=== PATIENT | male | born 1970 | race Caucasian/White ===

== ENCOUNTER 2017-06-28 11:35 | Observation (INO) | payer BC ==
[~2017-06-28] VITALS: Ht 167.6 cm; Wt 78.0 kg
[2017-06-28] VITALS (12 sets, daily range): BP systolic 133–198; BP diastolic 73–102; PULSE 54–101; RESP 18–31; TEMP 97.7–98.1; O2SAT 95–100
[~2017-06-28 11:35] MED LIST: APIDRA SQ; ASPI325T PO; ISOS30 PO; LISI-360 PO; NITR0.4S SL; PROT40TA PO; ROSU5 PO
[2017-06-28] MEDS ORDERED: PROPARACAINE HCL 0.5% OPHT SOLN 15 ML BTL RIGHT EYE ONE (11:45)
[2017-06-28] MEDS ORDERED: MORPHINE SULFATE 4 MG/ML INJ IV PUSH ONE (11:45)
[2017-06-28] MEDS ORDERED: SODIUM CHLORIDE 0.9% FLUSH 5 ML FLUSH IV FLUSH PRN (11:45)
[2017-06-28] MEDS ORDERED: SODIUM CHLORIDE 0.9% FLUSH 10 ML FLUSH IVF PRN (11:45)
[2017-06-28] MEDS: NITROGLYCERIN 0.4 MG SL 25 TABS/BTL SL SCH ×3 (11:50→12:17)
--- NOTE | 2017-06-28 11:53 | RADRPT ---
EXAM DATE/TIME: 06/28/2017 11:42 [facility] COMPARISON: No previous studies available for comparison. INDICATIONS : Syncope, had an injection in his eye and became short of breath. MEDICAL HISTORY : None. SURGICAL HISTORY : None. ENCOUNTER: Initial ACUITY: 1 day PAIN SCORE: 0/10 LOCATION: Bilateral chest FINDINGS: A single view of the chest demonstrates the lungs to be symmetrically aerated without evidence of mas s, infiltrate or effusion. The cardiomediastinal contours are unremarkable. Osseous structures are intact. CONCLUSION: Normal examination for a patient of this age. Noel Vaca MD on June 28, 2017 at 11:51 Board Certified Radiologist. This report was verified electronically.
[2017-06-28] MEDS ORDERED: ONDANSETRON HCL 4 MG/2 ML VIAL ONE (11:59)
[2017-06-28 12:12] LABS: AUTOMATED NEUTROPHIL # 7.6 TH/MM3 (1.8-7.7); BASOPHIL # 0.1 TH/MM3 (0-0.2); BASOPHIL % 0.8 % (0.0-2.0); EOSINOPHIL # 0.1 TH/MM3 (0-0.4); EOSINOPHIL % 0.9 % (0.0-4.0); HEMATOCRIT 44.3 % (39.0-51.0); HEMO FLAGS DIFF FINAL; LYMPHOCYTE # 2.5 TH/MM3 (1.0-4.8); MEAN CELL VOLUME 94.5 FL (80.0-100.0); MEAN CORPUSCULAR HEMOGLOBIN 32.6 PG (27.0-34.0); MEAN CORPUSCULAR HGB CONC 34.6 % (32.0-36.0); MONO % 8.7 % (0.0-8.0); NEUT % 67.6 % (16.0-70.0); PLATELET COUNT 283 TH/MM3 (150-450); RED BLOOD COUNT 4.69 MIL/MM3 (4.50-5.90); RED CELL DISTRIBUTION WIDTH 13.4 % (11.6-17.2); WHITE BLOOD COUNT 11.2 TH/MM3 (4.0-11.0)
[2017-06-28 12:21] LABS: APTT (PATIENT) 22.3 SEC (24.3-30.1); PROTHROMBIN TIME - PATIENT 11.1 SEC (9.8-11.6)
--- NOTE | 2017-06-28 12:25 | RADRPT ---
EXAM DATE/TIME: 06/28/2017 12:05 [facility] COMPARISON: No previous studies available for comparison. INDICATIONS : Altered mental status, loss of consciousness. RADIATION DOSE: 56.35 CTDIvol (mGy) MEDICAL HISTORY : Cardiovascular disease. Hypertension. Diabetes mellitus type 2. SURGICAL HISTORY : Coronary artery stent. ENCOUNTER: Initial ACUITY: 1 day PAIN SCALE: 0/10 LOCATION: cranial TECHNIQUE: Multiple contiguous axial images were obtained of the head. Using automated exposure control and adj ustment of the mA and/or kV according to patient size, radiation dose was kept as low as reasonably a chievable to obtain optimal diagnostic quality images. DICOM format image data is available electro nically for review and comparison. FINDINGS: CEREBRUM: The ventricles are normal for age. No evidence of midline shift, mass lesion, hemorrhage or acute in farction. No extra-axial fluid collections are seen. POSTERIOR FOSSA: The cerebellum and brainstem are intact. The 4th ventricle is midline. The cerebellopontine angle i s unremarkable. EXTRACRANIAL: The visualized portion of the orbits is intact. SKULL: The calvaria is intact. No evidence of skull fracture. CONCLUSION: Normal examination. Paramjit Mata MD on June 28, 2017 at 12:23 Board Certified Radiologist. This report was verified electronically.
[2017-06-28 12:28] LABS: ANION GAP 8 MEQ/L (5-15); BICARBONATE 24.2 MEQ/L (21.0-32.0); CHLORIDE 104 MEQ/L (98-107); GLOMERULAR FILTRATION RATE 90 ML/MIN (>89); POTASSIUM 4.8 MEQ/L (3.5-5.1); SODIUM (NA) 136 MEQ/L (136-145)
[2017-06-28 12:30] LABS: BLOOD UREA NITROGEN 23 MG/DL (7-18)
[2017-06-28 12:34] LABS: ALCOHOL LESS THAN 3 MG/DL (0-5)
--- NOTE | 2017-06-28 12:55 | PD ---
HPI Chief Complaint: Altered Mental Status Time Seen by Provider: 11:40 Travel History International Travel<30 days: No Contact w/Intl Traveler<30days: No Traveled to known affect area: No History of Present Illness HPI Patient's 46 years old. 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 At the time of injection he became very nervous and reported eye pain. Intraocular pressure was found to be 35 and a paracentesis was performed of the anterior chamber reducing the intraocular pressure to 13. Due to persistent pain and diaphoresis and distress exhibited by the patient the mold making plastics sheets supervisor called EMS and brought the patient here. The patient has a history of poorly controlled diabetes and 7 coronary stents. EMS reports blood pressure 200/100 and heart rate of 73 en route to ER. In the ER the patient complains of right eye pain. In summary the mold making plastics sheets supervisor noticed that patient's response to the injections to have been extraordinarily rare and the nature of the procedure and concern for an acute coronary process justified EMS activation. PFSH Past Medical History Blood Disorders: No Heart Rhythm Problems: No Cancer: No Cardiac Catheterization: Yes Cardiovascular Problems: Yes (STENTS X7 PER PT) High Cholesterol: Yes Chest Pain: Yes Congestive Heart Failure: No Diabetes: Yes (INSULIN DEPENDENT) Patient Takes Glucophage: No Diminished Hearing: No Endocrine: No Gastrointestinal Disorders: Yes GERD: Yes Genitourinary: No Hypertension: Yes Immune Disorder: No Musculoskeletal: No Neurologic: No Psychiatric: No Reproductive: No Respiratory: No Past Surgical History Coronary Stent: Yes Other Surgery: Yes (catheterization, rotator cuff left shoulder, trigger finger , left thumbs,) Social History Alcohol Use: Yes (COUPLE TIMES PER WEEK PER TP) Tobacco Use: Yes (1/2 PPD) Substance Use: No Allergies-Medications (Allergen,Severity, Reaction): Coded Allergies: Penicillin (Verified Allergy, Severe, hives, 06/28/17) Reported Meds & Prescriptions Reported Meds & Active Scripts Active Active Prescriptions or Reported Medications Unobtainable Review of Systems Except as stated in HPI: all other systems reviewed are Neg General / Constitutional: No: Fever Physical Exam Narrative GENERAL: 46-year-old male well-nourished well-developed mild to moderate distress SKIN: Minimal diaphoresis noted. HEAD: Atraumatic. Normocephalic. EYES: Pupils equal and round. No scleral icterus. No injection or drainage. Right eye is closed with minimal subconjunctival erythema. ENT: No nasal bleeding or discharge. Mucous membranes pink and moist. NECK: Trachea midline. No JVD. CARDIOVASCULAR: Regular rate and rhythm. RESPIRATORY: No accessory muscle use. Clear to auscultation. Breath sounds equal bilaterally. GASTROINTESTINAL: Abdomen soft, non-tender, nondistended. Hepatic and splenic margins not palpable. MUSCULOSKELETAL: Extremities without clubbing, cyanosis, or edema. No obvious deformities. NEUROLOGICAL: Awake and alert. No obvious cranial nerve deficits. Motor grossly within normal limits. Five out of 5 muscle strength in the arms and legs. Normal speech. PSYCHIATRIC: Appropriate mood and affect; insight and judgment normal. Data Data Last Documented VS Vital Signs Date Time Temp Pulse Resp B/P Pulse Ox O2 Delivery O2 Flow Rate FiO2 06/28/17 12:51 193/102 06/28/17 12:24 58 20 96 Room Air 06/28/17 11:47 97.7 Orders Electrocardiogram (06/28/17 11:40) Basic Metabolic Panel (Bmp) (06/28/17 11:40) Complete Blood Count With Diff (06/28/17 11:40) Prothrombin Time / Inr (Pt) (06/28/17 11:40) Act Partial Throm Time (Ptt) (06/28/17 11:40) Troponin I (06/28/17 11:40) Chest, Single Ap (06/28/17 11:40) Ct Brain W/O Iv Contrast(Rout) (06/28/17 11:40) Blood Glucose (06/28/17 11:40) Ecg Monitoring (06/28/17 11:40) Iv Access Insert/Monitor (06/28/17 11:40) Oximetry (06/28/17 11:40) Sodium Chloride 0.9% Flush (Ns Flush) (06/28/17 11:45) Drug Screen, Random Urine (06/28/17 11:40) Alcohol (Ethanol) (06/28/17 11:40) Ckmb (Isoenzyme) Profile (06/28/17 11:45) Prothrombin Time / Inr (Pt) (06/28/17 11:45) Act Partial Throm Time (Ptt) (06/28/17 11:45) Troponin I (06/28/17 11:45) Morphine Inj (Morphine Inj) (06/28/17 11:45) Sodium Chloride 0.9% Flush (Ns Flush) (06/28/17 11:45) Proparacaine 0.5% Opth Soln (Alcaine 0.5 (06/28/17 11:45) Nitroglycerin Sl (Nitrostat Sl) (06/28/17 11:45) Ondansetron Inj (Zofran Inj) (06/28/17 11:59) Ondansetron Inj (Zofran Inj) (06/28/17 13:00) Insulin Human Regular Inj (Novolin R Inj (06/28/17 13:00) Hydromorphone Pf Inj (Dilaudid Pf Inj) (06/28/17 13:30) Lorazepam Inj (Ativan Inj) (06/28/17 13:30) Enalaprilat Inj (Vasotec Inj) (06/28/17 14:15) Admit Order (Ed Use Only) (06/28/17 14:38) Labs Laboratory Tests Test 06/28/17 11:54 White Blood Count 11.2 TH/MM3 Red Blood Count 4.69 MIL/MM3 Hemoglobin 15.3 GM/DL Hematocrit 44.3 % Mean Corpuscular Volume 94.5 FL Mean Corpuscular Hemoglobin 32.6 PG Mean Corpuscular Hemoglobin 34.6 % Concent Red Cell Distribution Width 13.4 % Platelet Count 283 TH/MM3 Mean Platelet Volume 9.2 FL Neutrophils (%) (Auto) 67.6 % Lymphocytes (%) (Auto) 22.0 % Monocytes (%) (Auto) 8.7 % Eosinophils (%) (Auto) 0.9 % Basophils (%) (Auto) 0.8 % Neutrophils # (Auto) 7.6 TH/MM3 Lymphocytes # (Auto) 2.5 TH/MM3 Monocytes # (Auto) 1.0 TH/MM3 Eosinophils # (Auto) 0.1 TH/MM3 Basophils # (Auto) 0.1 TH/MM3 CBC Comment DIFF FINAL Differential Comment Prothrombin Time 11.1 SEC Prothromb Time International 1.0 RATIO Ratio Activated Partial 22.3 SEC Thromboplast Time Sodium Level 136 MEQ/L Potassium Level 4.8 MEQ/L Chloride Level 104 MEQ/L Carbon Dioxide Level 24.2 MEQ/L Anion Gap 8 MEQ/L Blood Urea Nitrogen 23 MG/DL Creatinine 0.90 MG/DL Estimat Glomerular Filtration 90 ML/MIN Rate Random Glucose 325 MG/DL Calcium Level 8.2 MG/DL Troponin I LESS THAN 0.02 NG/ML Ethyl Alcohol Level LESS THAN 3 MG/DL MDM Medical Decision Making Medical Screen Exam Complete: Yes Emergency Medical Condition: Yes Medical Record Reviewed: Yes Differential Diagnosis Acute coronary syndrome, panic attack, glaucoma, vitreous hemorrhage, complication related to intraocular injections, diabetic retinopathy, increased intraocular pressure Narrative Course EKG reveals a sinus rhythm with a rate of 62 normal axis and intervals no ischemic injury pattern Last [address] 06/28/17 1140 Signed Impressions: Service Date/Time: June 12:05 - CONCLUSION: Normal examination. Paramjit Mata MD Chest X-Ray 06/28/17 1140 Signed Impressions: Service Date/Time: June 11:42 - CONCLUSION: Normal examination for a patient of this age. Noel Vaca MD CBC & BMP Diagram 06/28/17 11:54 Troponin less than 0.02 Alcohol less than 3 Last [address] 06/28/17 1140 Signed Impressions: Service Date/Time: June 12:05 - CONCLUSION: Normal examination. Paramjit Mata MD Chest X-Ray 06/28/17 1140 Signed Impressions: Service Date/Time: June 11:42 - CONCLUSION: Normal examination for a patient of this age. Noel Vaca MD EKG sinus rate 62 normal axis intervals no ischemic injury pattern Patient's blood pressure remained somewhat elevated initially with the BP is about 195/100. Patient had right eye pain for some time. 5 mg morphine was marginally beneficial temporarily. The complaints of persistent pain resulted in an additional 0.5 mg hydromorphone dose. 1.25 mg Vasotec ordered at 2:15. The case was discussed again with Dr. Isael crandall the patient had begun to complain of lack of vision in the right eye. The right eye pupil was fixed at about 4 mm. The left eye appeared normal. Intraocular pressure on the right side (OD) 29 27 24 24 and the left side (OS) [address] of the brain is normal. Nonspecific changes about the right orbit are noted. Case was discussed with Dr. Burnham for [facility]. Critical Care Narrative Aggregate critical care time was 35 minutes. Time to perform other separately billable procedures was not included in the critical care time. My time did not include minutes spent treating any other patients simultaneously or on activities that did not directly contribute to the patient's treatment. The services I provided to this patient were to treat and/or prevent clinically significant deterioration that could result in: Vision loss, intractable pain I provided critical care services requiring my management, as noted below: Chart data review, documentation time, medication orders and management, vital sign assessments/reviewing monitor data, ordering and reviewing lab tests, ordering and interpreting/reviewing x-rays and diagnostic studies, care of the patient and discussion of the patient with the admitting physicians. Diagnosis Primary Impression: Visual loss, right eye Additional Impression: Pain, eye, right Admitting Information Admitting Physician Requests: Admit Scripts Unable to Obtain Active Prescriptions or Reported Meds Mazin Nielsen MD Jun 28, 2017 12:55
[2017-06-28] MEDS ORDERED: INSULIN HUMAN REGULAR 1,000 UNITS/10 ML VIAL IV PUSH ONE (13:00)
[2017-06-28] MEDS ORDERED: ONDANSETRON HCL 4 MG/2 ML VIAL IV PUSH ONE (13:00)
[2017-06-28] MEDS ORDERED: LORazepam 2 MG/ML VIAL IV PUSH ONE (13:30)
[2017-06-28] MEDS ORDERED: HYDROmorphone HCL PF 1 MG/ML VIAL IV PUSH ONE (13:30)
[2017-06-28] MEDS ORDERED: ENALAPRILAT 1.25 MG/ML VIAL IV PUSH ONE (14:15)
[2017-06-28] MEDS ORDERED: ENALAPRILAT 1.25 MG/ML VIAL IV PRN (14:45)
[2017-06-28] MEDS ORDERED: ONDANSETRON HCL 4 MG/2 ML VIAL IVP PRN (14:45)
[2017-06-28] MEDS ORDERED: SODIUM CHLORIDE 0.9% FLUSH 10 ML FLUSH IV FLUSH PRN (14:45)
[2017-06-28] MEDS ORDERED: cloNIDine HCL 0.1 MG TAB PO PRN (14:45)
[2017-06-28] MEDS ORDERED: SENNOSIDES 8.6 MG TAB PO PRN (14:45)
[2017-06-28] MEDS ORDERED: hydrALAZINE HCL 20 MG/ML VIAL IV PRN (14:45)
[2017-06-28] MEDS ORDERED: LORazepam 2 MG/ML VIAL IV PUSH PRN (14:45)
[2017-06-28] MEDS ORDERED: DEXTROSE 50% IN WATER 50 ML VIAL(D50) IV PRN (14:45)
[2017-06-28] MEDS ORDERED: LACTULOSE SYRUP 20 GM/30 ML CUP PO PRN (14:45)
[2017-06-28] MEDS ORDERED: HYDROmorphone HCL PF 1 MG/ML VIAL IV PRN (14:45)
[2017-06-28] MEDS ORDERED: ACETAMINOPHEN 325 MG TAB PO PRN ×2 (14:45)
[2017-06-28] MEDS ORDERED: NALOXONE HCL 0.4 MG/ML AMP IV PRN (14:45)
[2017-06-28] MEDS ORDERED: GLUCAGON 1 MG/ML VIAL OTHER PRN (14:45)
[2017-06-28] MEDS ORDERED: ACETAMINOPHEN/HYDROcodone 325 MG/5 MG TAB PO PRN (14:45)
[2017-06-28] MEDS ORDERED: MAGNESIUM HYDROXIDE SUSP 30 ML CUP PO PRN (14:45)
[2017-06-28] MEDS ORDERED: 1/2 NS + KCL 20 MEQ INJ 1,000 ML IV PRN (15:30)
[2017-06-28] MEDS ORDERED: OMEP20TA PO (15:35)
[2017-06-28] MEDS ORDERED: INSU1INJ5 SQ (15:35)
[2017-06-28] MEDS ORDERED: NOVOLOGP2 IV (15:35)
[2017-06-28] MEDS ORDERED: LISI-515 PO (15:35)
--- NOTE | 2017-06-28 15:58 | HHI.HP ---
HPI Service [facility] Primary Care Physician Unknown Admission Diagnosis R Eye Pain/R Eye Visual Change, HTN, Anxiety, Hyperglycemia Diagnoses: Chief Complaint: Right eye pain, unable to see Travel History International Travel<30 Days: No Contact w/Intl Traveler <30 Da: No Traveled to Known Affected Are: No History of Present Illness Written by Jose Freitas, acting as scribe for Dr. Burnham on 06/28/17 at 15: 26. Patient is a 46-year-old male with primary medical history of HTN, IDDM, HLD, CAD, GERD who came into the hospital for evaluation of right eye pain, right eye visual change post ophthalmology procedure. Patient was seen at Dr. Kirkland's office were in he received intraocular injections of Kenalog and avastin. Patient states that the first injection he was doing okay. But by the second injection he felt so much pain in the right eye. States he remembered staff checking intraocular pressure which was 35 and a paracentesis was performed of the anterior chamber to reduce intraocular pressure and repeat pressure was 13. Patient states that after that he felt his lower body was numb and he wasn't able to get up or do anything. As per his father who was with him at the clinic , the nurse was telling him that patient is having chest pain and when he saw the patient and ask him if he is having chest pain he denied. He was noted to be diaphoretic, complains of nausea and started vomiting and difficulty breathing. EMS was called and brought the patient to the hospital for further evaluation. As per records, en route to the hospital. EMS noted patient's blood pressure to be 200/100 with a heart rate of 73. In the ED patient's blood pressure continues to be elevated in the 180s. He continues to complain of right eye pain and he was given morphine, Dilaudid. He was also vomiting on arrival and was given antiemetic. Patient seen and examined. , father, [id number] at the bedside. Patient is drowsy but able to give pertinent information and history of how he came to the hospital. States he continues to not see on the right eye. Describes it as being "black, just black." He is now able to move his bilateral lower extremity and upper extremity. Complains of right eye pain, 6/ 10, unable to describe, as not radiate anywhere. Denies chest pain, palpitations, headaches, dizziness. Denies fevers, chills. Review of Systems Constitutional: DENIES: Diaphoretic episodes, Fatigue, Fever, Weight gain, Weight loss, Chills, Dizziness, Change in appetite, Night Sweats Endocrine: DENIES: Heat/cold intolerance, Polydipsia, Polyuria, Polyphagia Eyes: DENIES: Blurred vision, Diplopia, Vision loss, Photosensitivity Ears, nose, mouth, throat: DENIES: Tinnitus, Vertigo, Throat pain, Hoarseness, Epistaxis, Odynophagia Respiratory: DENIES: Cough, Wheezing, Hemoptysis, Sputum production, Shortness of breath Cardiovascular: DENIES: Chest pain, Palpitations, Syncope, Dyspnea on Exertion , PND, Lower Extremity Edema, Orthopnea, Claudication Gastrointestinal: DENIES: Abdominal pain, Black stools, Bloody stools, Constipation, Diarrhea, Nausea, Vomiting, Difficulty Swallowing, Anorexia Genitourinary: DENIES: Urinary frequency, Urinary incontinence, Urgency, Hematuria, Dysuria, Nocturia, Penile Discharge Integumentary: DENIES: Rash Neurologic: DENIES: Headache, Localized weakness, Seizures, Tremor, Poor Balance Psychiatric: DENIES: Anxiety, Confusion, Depression, Hallucinations, Agitation , Suicidal Ideation, Homicidal Ideation, Delusions Except as stated in HPI: all other systems reviewed are Neg Past Family Social History Past Medical History CAD HLD IDDM GERD HTN Past Surgical History Stent placements Cardiac catheter Rotator cuff repair left shoulder repair trigger finger Left thumb surgery Insulin pump Reported Medications Reported Meds & Active Scripts Active Reported Levemir Flextouch Pen Inj (Insulin Detemir) 300 unit/3 ML Pen 15 Units SQ DAILY PRN Lisinopril 20 Mg Tab 20 Mg PO DAILY Omeprazole 20 Mg Tab 20 Mg PO DAILY Novolog Inj (Insulin Aspart) 1,000 Unit/10 Ml Vial 45 Units IV DAILY Allergies: Coded Allergies: Penicillin (Verified Allergy, Severe, hives, 06/28/17) Active Ordered Medications Current Medications Medications (Trade) Dose Ordered Sig/Noreen Route Start Time Stop Time Status Last Admin (NS Flush) 2 ml UNSCH PRN IV FLUSH 06/28/17 11:45 06/28/17 13:14 (NS Flush) 2 ml UNSCH PRN IVF 06/28/17 11:45 06/28/17 13:14 (Vasotec Inj) 1.25 mg Q6H PRN IV 06/28/17 14:45 UNV (Apresoline Inj) 10 mg Q6H PRN IV 06/28/17 14:45 (Catapres) 0.1 mg Q6H PRN PO 06/28/17 14:45 (D50w (Vial) Inj) 50 ml UNSCH PRN IV 06/28/17 14:45 (Glucagon Inj) 1 mg UNSCH PRN OTHER 06/28/17 14:45 (Ativan Inj) 0.25 mg Q6H PRN IV PUSH 06/28/17 14:45 (NS Flush) 2 ml UNSCH PRN IV FLUSH 06/28/17 14:45 UNV (NS Flush) 2 ml BID IV FLUSH 06/28/17 21:00 UNV (Tylenol) 650 mg Q4H PRN PO 06/28/17 14:45 UNV (Zofran Inj) 4 mg Q6H PRN IVP 06/28/17 14:45 UNV (Tylenol) 650 mg Q6H PRN PO 06/28/17 14:45 UNV (Grant 5-325 Mg) 1 tab Q4H PRN PO 06/28/17 14:45 UNV (Grant 10-325 Mg) 1 tab Q4H PRN PO 06/28/17 14:45 UNV (Dilaudid Pf Inj) 1 mg Q3H PRN IV 06/28/17 14:45 (Narcan Inj) 0.4 mg UNSCH PRN IV 06/28/17 14:45 (Candice-Colace) 1 tab BID PO 06/28/17 21:00 UNV (Milk Of Magnesia Liq) 30 ml Q12H PRN PO 06/28/17 14:45 (Senokot) 17.2 mg Q12H PRN PO 06/28/17 14:45 UNV Lactulose 30 ml 30 ml DAILY PRN PO 06/28/17 14:45 (1/2 NS + KCl 20 Meq Inj) 1,000 ml @ 60 mls/hr [id number] PRN IV 06/28/17 15:30 UNV Family History Father has HTN Social History Patient is . Twice a week alcohol use Half pack per day tobacco use Denies illicit drug use Physical Exam Vital Signs Vital Signs Date Time Temp Pulse Resp B/P Pulse Ox O2 Delivery O2 Flow Rate FiO2 06/28/17 15:00 70 18 180/90 100 Nasal Cannula 2 06/28/17 14:47 100 Nasal Cannula 3.00 06/28/17 12:51 193/102 06/28/17 12:24 58 20 165/102 96 Room Air 06/28/17 11:51 100 Room Air 06/28/17 11:47 97.7 54 31 198/98 100 Room Air Physical Exam GENERAL: This is a well-nourished, well-developed patient, in no apparent distress. SKIN: No rashes, ecchymoses or lesions. Cool and dry. HEAD: Atraumatic. Normocephalic. No temporal or scalp tenderness. EYES: Pupils round and sluggish reactive. Extraocular motions intact. No scleral icterus. Right eye injection, no drainage. ENT: Nose without bleeding. Throat without erythema. Uvula midline. Airway patent. NECK: Trachea midline. Supple. CARDIOVASCULAR: Regular rate and rhythm without murmurs, gallops, or rubs. RESPIRATORY: Clear to auscultation. Breath sounds equal bilaterally. No wheezes , rales, or rhonchi. GASTROINTESTINAL: Abdomen soft, non-tender, nondistended. Bowel sounds active 4. No guarding. MUSCULOSKELETAL: Extremities without clubbing, cyanosis, or edema. NEUROLOGICAL: Drowsy. Bilateral red reflex noted. Right eye pupils slightly dilated > left. Motor and sensory grossly within normal limits. Normal speech. Laboratory Laboratory Tests Test 06/28/17 11:54 White Blood Count 11.2 Red Blood Count 4.69 Hemoglobin 15.3 Hematocrit 44.3 Mean Corpuscular Volume 94.5 Mean Corpuscular Hemoglobin 32.6 Mean Corpuscular Hemoglobin 34.6 Concent Red Cell Distribution Width 13.4 Platelet Count 283 Mean Platelet Volume 9.2 Neutrophils (%) (Auto) 67.6 Lymphocytes (%) (Auto) 22.0 Monocytes (%) (Auto) 8.7 Eosinophils (%) (Auto) 0.9 Basophils (%) (Auto) 0.8 Neutrophils # (Auto) 7.6 Lymphocytes # (Auto) 2.5 Monocytes # (Auto) 1.0 Eosinophils # (Auto) 0.1 Basophils # (Auto) 0.1 CBC Comment DIFF FINAL Differential Comment Prothrombin Time 11.1 Prothromb Time International 1.0 Ratio Activated Partial 22.3 Thromboplast Time Sodium Level 136 Potassium Level 4.8 Chloride Level 104 Carbon Dioxide Level 24.2 Anion Gap 8 Blood Urea Nitrogen 23 Creatinine 0.90 Estimat Glomerular Filtration 90 Rate Random Glucose 325 Calcium Level 8.2 Troponin I LESS THAN 0.02 Ethyl Alcohol Level LESS THAN 3 Result Diagram: 06/28/17 1154 06/28/17 1154 Imaging EKG tracing interpreted by me showing sinus rhythm no ST changes Chest x-ray image interpreted by me with no acute cardio pulmonary disease Last Impressions Head CT 06/28/17 1140 Signed Impressions: Service Date/Time: June 12:05 - CONCLUSION: Normal examination. Paramjit Mata MD Chest X-Ray 06/28/17 1140 Signed Impressions: Service Date/Time: June 11:42 - CONCLUSION: Normal examination for a patient of this age. Noel Vaca MD Assessment and Plan Problem List: (1) Pain, eye, right ICD Code: H57.11 Status: Acute (2) Visual loss, right eye ICD Code: H54.61 Status: Acute (3) Diabetes mellitus, insulin dependent (IDDM), uncontrolled ICD Code: E10.65 Status: Acute (4) Hypertension, uncontrolled ICD Code: I10 Status: Acute Assessment and Plan Patient is a 46-year-old male with primary medical history of CAD, HTN, IDDM, HLD, GERD who came into the hospital for evaluation of right eye pain, right eye visual change post ophthalmology procedure. Intraocular injection, secondary to diabetic retinopathy Right eye pain, right eye visual loss, changes Increase IOP - Possible drug reaction versus cardiac event hx CAD versus stroke - Patient was given Avastin/ Kenalog. Avastin can cause elevated BP and Kenalog can increase IOP - Patient's symptoms don't appear to have stroke since numbness and movement loss was bilateral. Return of motor and sensory WNL on exam - CT scan showed normal examination - Chest x-ray showed normal examination for patient this age - EKG reviewed by me, sinus rhythm with no ST changes. Cardiac Enzymes negative - Consult Ophthalmology for further recommendation. Dr. Kirkland will see the patient. - Start pain management with po and IV dilaudid, anxiety management - IV Ativan Hypertension, uncontrolled - Patient takes lisinopril 20 mg daily at home. He took the medication this morning and compliant about it. As per his blood pressure is well controlled at home. - Avastin can cause increase in BP - Will start patient on pain medications Dilaudid IV, Grant PRN - Continue home meds - Hydralazine when necessary, Vasotec when necessary, clonidine when necessary - Monitor BP trend IDDM, uncontrolled - Patient's blood sugar is in the 300 when he came to the hospital. States he took his Levemir last night 20 units. - Patient states he is usually on insulin pump but he alternates insulin pump and takes a break from it. During a month or 2 of insulin pump break, patient will take Levemir and Apidra on sliding scale to cover his blood glucose. - Restart home dose Levemir 20 units, insulin sliding scale - Monitor Accu-Cheks. Monitor for hypoglycemia - Check hemoglobin A1c DVT prop SCDs Code Status Full code Discussed Condition With Patient, , father, [id number], nursing, ED attending This note was transcribed by terese Freitas. I, Dr. Cole Burnham personally performed the history, physical exam, and medical decision making; and confirmed the accuracy of the information in the transcribed note. Authenticated by Dr. Cole Burnham on 06/28/17 at 15:28. Jose Gross Jun 28, 2017 15:58 Cole Burnham MD Jun 28, 2017 16:49
[2017-06-28] MEDS: INSULIN ASPART SUPPLEMENTAL SCALE SQ SCH ×2 (16:35→19:58)
[2017-06-28] MEDS ORDERED: LISI30TA4 PO (16:37)
[2017-06-28] MEDS ORDERED: APIDINJ SQ (16:37)
[2017-06-28] MEDS ORDERED: PILL SPLITTER OTHER PRN (17:45)
[2017-06-28] MEDS ORDERED: INSULIN DETEMIR 100 UNITS/ML VIAL SQ SCH (18:00)
--- NOTE | 2017-06-28 18:38 | MB ---
cc: CARI KOROMA DATE OF CONSULTATION: 06/28/2017. HISTORY OF PRESENT ILLNESS: This is a 46-year-old right-handed man with hypertension and insulin-dependent diabetes mellitus, hypercholesterolemia, myocardial infarction, status post seven stents, 81 of aspirin a day he takes and for the last several months he has been getting about every six weeks injections in his eyes for diabetic retinopathy. Everything has usually gone well but today after an injection, he felt pressure in the eye that was very severe. He panicked a little bit, got short of breath, felt dizzy and lightheaded, got very diaphoretic and passed out he thinks over ten times including in the emergency room, he says, and in the ambulance. His vision has not returned in the right eye, it has been black and Dr. Kirkland evidently did see him in the office. He passed out ten years ago but otherwise has not passed out. There was no chest pressure or headache per se but he did have a pressure type feeling on the right side forehead and face when the eye pressure was high after the procedure and evidently they took some fluid off and the pressure went down. He was getting intraocular injections of Kenalog and Avastin. Blood pressure initially when the it coordinator came was 200/100. MEDICATIONS: 1. Levemir. 2. Lisinopril. 3. Omeprazole. 4. Novolin insulin. 5. A baby aspirin a day. REVIEW OF SYSTEMS: He denies any atrial fibrillation, Coumadin, CABG, renal, hepatic, or pulmonary disease, thyroid disease, lupus, ulcer, cancer, seizure or stroke. REVIEW OF SYSTEMS She denies any A fib, Coumadin cabbage renal, hepatic, pulmonary disease, thyroid disease lupus, ulcer cancer seizure, stroke. SOCIAL HISTORY Occasionally he has a cigarette. He has three drinks a day of whiskey. He lives with his . FAMILY HISTORY: His family history is negative for cancer, seizure or stroke. PHYSICAL EXAMINATION: VITAL SIGNS: Afebrile, 101, 18, 172/98 to 193/102. NECK: There are no carotid bruits. HEART: Regular rhythm. I do not detect a murmur. NEUROLOGICAL EXAMINATION: Pupils are equal, the right one may just be , it is hard to say. Minimal reaction bilaterally. His visual sanches are full left eye; right eye he says is totally black. Extraocular muscles intact without nystagmus. Face is symmetric. Tongue was midline. No definite ptosis on the right but he likes to keep that eye shut. Facial sensation was intact. There is no drift. He has normal strength in upper and lower extremities bilaterally. DTRs are trace throughout. Toes are downgoing bilaterally. Pin prick is intact throughout. He is not ataxic on [id number]. Speech is fluent. He is not aphasic. LABORATORY DATA: CBC shows a white count 11.2 otherwise normal. Cholesterol normal. Troponin negative. LFTs normal. Basic metabolic profile. Normal glucose 325. Coags normal. IMAGING STUDIES: The CT scan of the brain was read as normal. On review of the CT of the brain, normal. There is a little bit of air on the cornea on the right. Chest x-ray normal. Orbits were read as normal. IMPRESSION: Multiple syncopal episodes, probably vasovagal. He has a strong cardiac history with seven stents and I would recommend having cardiology see him. I will defer to the med team if they think that is necessary. I think it is unlikely this is a primary neurological event. We can check an MRI and EEG. Otherwise I thought he looked well neurologically except for the vision loss in the right eye. He has a lot of risk factors. We can check a carotid ultrasound on him. I think if his MRI is negative, and his ultrasound is negative and depending on what the medical team wants to do with cardiology, he could be discharged neuro[facility]. MD CIPRIANO Santillan/MAXIMINO /5:43 PM /6:15 PM
--- NOTE | 2017-06-28 19:47 | RADRPT ---
EXAM DATE/TIME: 06/28/2017 18:33 [facility] COMPARISON: No previous studies available for comparison. INDICATIONS : Cerebrovascular accident. MEDICAL HISTORY : Gastroesophageal reflux disease. Hypertension. Hypercholesterolemia. Diabetes. Tobacco use. Alcohol use. SURGICAL HISTORY : Cardiac catheterization. Coronary stent x7. Left shoulder rotator cuff repair. Left thumb surgery. ENCOUNTER: Initial ACUITY: 1 day PAIN SCORE: 0/10 LOCATION: Bilateral neck. PEAK SYSTOLIC VELOCITIES (cm/sec): ICA/CCA RATIO: Right: 0.6 Left: 0.7 ICA: Right: 55.9 Left: 86.8 CCA: Right: 94.9 Left: 116.0 ECA: Right: 159.3 Left: 87.1 VERTEBRAL: Right: 53.7 antegrade Left: 42.7 antegrade Elevated flow velocities and ICA/CCA ratios have been found to correlate with increased degrees of vessel stenosis, calculated as percentage of diameter relative to a normal segment of distal ICA/CCA FINDINGS: RIGHT CAROTID: There is no evidence for a hemodynamically significant carotid stenosis. Minimal int imal hyperplasia is present with scattered calcific plaque. LEFT CAROTID: There is no evidence for a hemodynamically significant carotid stenosis. Minimal inti mal hyperplasia is present with scattered calcific plaque. VERTEBRAL ARTERIES: Flow is antegrade in both vertebral arteries. MISCELLANEOUS: There are no ancillary masses or adenopathy. CONCLUSION: Negative examination for a hemodynamically significant carotid stenosis. Med Lang MD FACR Board Certified Radiologist. This report was verified electronically.
[2017-06-28] MEDS: ACETAMINOPHEN/HYDROcodone 325 MG/10 MG TAB PO PRN (20:03)
[2017-06-28] MEDS: SODIUM CHLORIDE 0.9% FLUSH 10 ML FLUSH IV FLUSH SCH (21:00)
[2017-06-28] MEDS: DOCUSATE SODIUM 50 MG/SENNA 8.6 MG TAB PO SCH (21:00)
[2017-06-28 22:04] LABS: CREATINE KINASE 87 U/L (39-308)
[2017-06-29] VITALS (7 sets, daily range): BP systolic 131–149; BP diastolic 70–71; PULSE 78–98; RESP 18; TEMP 97.9–98.7; O2SAT 96–97
[2017-06-29] MEDS: INSULIN ASPART SUPPLEMENTAL SCALE SQ SCH ×2 (04:57→11:00)
[2017-06-29 06:19] LABS: AUTOMATED NEUTROPHIL # 14.9 TH/MM3 (1.8-7.7); BASOPHIL # 0.1 TH/MM3 (0-0.2); BASOPHIL % 0.6 % (0.0-2.0); EOSINOPHIL % 0.1 % (0.0-4.0); HEMATOCRIT 43.4 % (39.0-51.0); HEMO FLAGS DIFF FINAL; LYMPH % 6.5 % (9.0-44.0); LYMPHOCYTE # 1.1 TH/MM3 (1.0-4.8); MEAN CELL VOLUME 94.6 FL (80.0-100.0); MEAN CORPUSCULAR HEMOGLOBIN 32.1 PG (27.0-34.0); MEAN CORPUSCULAR HGB CONC 33.9 % (32.0-36.0); MONO % 6.4 % (0.0-8.0); NEUT % 86.4 % (16.0-70.0); PLATELET COUNT 297 TH/MM3 (150-450); RED BLOOD COUNT 4.59 MIL/MM3 (4.50-5.90); RED CELL DISTRIBUTION WIDTH 13.4 % (11.6-17.2); WHITE BLOOD COUNT 17.3 TH/MM3 (4.0-11.0)
[2017-06-29 06:44] LABS: ANION GAP 6 MEQ/L (5-15); BICARBONATE 27.1 MEQ/L (21.0-32.0); BLOOD UREA NITROGEN 21 MG/DL (7-18); CHLORIDE 99 MEQ/L (98-107); GLOMERULAR FILTRATION RATE 99 ML/MIN (>89); MAGNESIUM 1.8 MG/DL (1.5-2.5); POTASSIUM 3.9 MEQ/L (3.5-5.1); SODIUM (NA) 132 MEQ/L (136-145)
[2017-06-29 07:18] LABS: CREATINE KINASE 76 U/L (39-308)
--- NOTE | 2017-06-29 07:26 | HHI.PR ---
Subjective Remarks sr Objective Vital Signs Date Time Temp Pulse Resp B/P Pulse Ox O2 Delivery O2 Flow Rate FiO2 06/29/17 04:31 97.9 91 18 140/71 97 06/29/17 04:15 78 06/29/17 01:05 93 06/29/17 00:09 98.0 91 18 131/70 97 06/28/17 21:28 98.1 101 18 133/73 95 06/28/17 19:11 98 Nasal Cannula 2.00 06/28/17 18:43 91 06/28/17 18:00 93 06/28/17 17:10 98.1 101 18 172/98 98 06/28/17 15:22 81 173/95 06/28/17 15:00 70 18 180/90 100 Nasal Cannula 2 06/28/17 14:47 100 Nasal Cannula 3.00 06/28/17 12:51 193/102 06/28/17 12:24 58 20 165/102 96 Room Air 06/28/17 11:51 100 Room Air 06/28/17 11:47 97.7 54 31 198/98 100 Room Air Result Diagram: 06/29/17 0605 06/29/17 0605 Objective Remarks still blind od os ok seems to move od lat ok maybe slight dec rom hard to say some i think mechanical ptosis moves all well nl speech Assessment and Plan Assessment and Plan imp likley vasovagal syncope defer to med team if cards should see him with hx cad and 7 stents if mri neg and eeg done ok dc neurowise some ic pain od although pupil= this am ? if optho needs to come by and see him or pressure recheck this am? small bruise r eyelid noted Pa Shah MD Jun 29, 2017 07:26
[2017-06-29] MEDS ORDERED: HYDR-3583 PO (07:54)
--- NOTE | 2017-06-29 07:55 | HHI.DCPOC ---
Discharge Care Plan Diagnosis: (1) Visual loss, right eye (2) Hypertension, uncontrolled (3) Diabetes mellitus, insulin dependent (IDDM), uncontrolled Your Health Problems Are: Difficulty with ADL Exercise Tolerance Goals to Promote Your Health * To prevent worsening of your condition and complications * To maintain your health at the optimal level Directions to Meet Your Goals Take your medications as prescribed Follow your dietary instruction Follow activity as directed Keep your appointments as scheduled Take your immunizations and boosters as scheduled If your symptoms worsen call your PCP, if no PCP go to Urgent Care Center or Emergency Room Smoking is Dangerous to Your Health. Avoid second hand smoke Call the 24-hour hour crisis hotline for domestic abuse at Cole Burnham MD Jun 29, 2017 07:55
--- NOTE | 2017-06-29 07:56 | HHI.FF ---
Face to Face Verification Diagnosis: (1) Hypertension, uncontrolled (2) Diabetes mellitus, insulin dependent (IDDM), uncontrolled (3) Visual loss, right eye Physical Therapy Order: Evaluate and Treat, Improve ambulation, Strength and gait training Home Health Nursing Order: Medical education Signs/symptoms of disease process Diabetic education Medication education-adverse effect Nursing assessment with vital signs I have seen patient Wilber Schafer on 06/29/17. My clinical findings support the need for the requested home health care services because: Limited ability to care for self Need for psychosocial assistance I certify that my clinical findings support that this patient is homebound because: Unsteady gait/balance Unsafe to leave home unassisted Cole Burnham MD Jun 29, 2017 07:56
[2017-06-29] MEDS: DOCUSATE SODIUM 50 MG/SENNA 8.6 MG TAB PO SCH (08:46)
[2017-06-29] MEDS: SODIUM CHLORIDE 0.9% FLUSH 10 ML FLUSH IV FLUSH SCH (08:46)
[2017-06-29] MEDS: ACETAMINOPHEN/HYDROcodone 325 MG/10 MG TAB PO PRN (08:49)
[2017-06-29] MEDS ORDERED: PANTOPRAZOLE SOD 20 MG DELAYED RELEASE TAB PO SCH (09:00)
[2017-06-29] MEDS ORDERED: LISINOPRIL 20 MG TAB PO SCH (09:00)
--- NOTE | 2017-06-29 09:17 | RADRPT ---
EXAM DATE/TIME: 06/29/2017 07:54 [facility] COMPARISON: No previous studies available for comparison. INDICATIONS : Right eye visual changes. MEDICAL HISTORY : Hypertension. Gastroesophageal reflux disease. HLD, CAD SURGICAL HISTORY : shoulder repair, heart stents ENCOUNTER: Subsequent ACUITY: 2 day PAIN SCORE: 0/10 LOCATION: cranial TECHNIQUE: Multiplanar, multisequence MRI of the brain was performed without contrast. FINDINGS: CEREBRUM: The ventricles are normal for age. No evidence of midline shift, mass lesion, hemorrhage or acute in farction. No extraaxial fluid collections are seen. The pituitary gland and suprasellar cistern are normal in configuration. WHITE MATTER: No significant signal abnormalities are seen in the white matter. POSTERIOR FOSSA: The cerebellum and brainstem are intact. The 4th ventricle is midline. The cerebellopontine angle is unremarkable. The cerebellar tonsils are normal in position. DIFFUSION IMAGING: No focal areas of restricted diffusion are seen. No evidence of acute infarction. EXTRACRANIAL: The visualized portions of the orbits and paranasal sinuses are unremarkable. CONCLUSION: Normal examination. Paramjit Mata MD on June 29, 2017 at 9:13 Board Certified Radiologist. This report was verified electronically.
--- NOTE | 2017-06-29 09:26 | RADRPT ---
EXAM DATE/TIME: 06/29/2017 07:54 [facility] COMPARISON: No previous studies available for comparison. INDICATIONS : Right eye visual changes. MEDICAL HISTORY : Hypertension. Diabetes mellitus type 2. CAD, HLD SURGICAL HISTORY : shoulder repair, heart stents ENCOUNTER: Subsequent ACUITY: 2 day PAIN SCORE: 0/10 LOCATION: cranial Please note a normal MRA of the brain does not entirely exclude the possibility of a small aneurysm, nor the possibility of distal intracranial vessel disease. TECHNIQUE: 3D time of flight MRA was performed. Source images, multiplanar STS MIP, and 3D volume MIP reconstru ctions were reviewed. FINDINGS: There is excellent visualization of the major intracranial arteries out to the second-order branch ve ssels. There is no evidence for aneurysm, vessel truncation or stenosis, and no evidence for vascula r malformation.CONCLUSION: Normal examination. Paramjit Mata MD on June 29, 2017 at 9:24 Board Certified Radiologist. This report was verified electronically.
--- NOTE | 2017-06-29 10:02 | HHI.PR ---
Subjective Remarks Follow-up syncope Objective Vitals Vital Signs Date Time Temp Pulse Resp B/P Pulse Ox O2 Delivery O2 Flow Rate FiO2 06/29/17 08:44 98.7 96 18 149/70 96 06/29/17 04:31 97.9 91 18 140/71 97 06/29/17 04:15 78 06/29/17 01:05 93 06/29/17 00:09 98.0 91 18 131/70 97 06/28/17 21:28 98.1 101 18 133/73 95 06/28/17 19:11 98 Nasal Cannula 2.00 06/28/17 18:43 91 06/28/17 18:00 93 06/28/17 17:10 98.1 101 18 172/98 98 06/28/17 15:22 81 173/95 06/28/17 15:00 70 18 180/90 100 Nasal Cannula 2 06/28/17 14:47 100 Nasal Cannula 3.00 06/28/17 12:51 193/102 06/28/17 12:24 58 20 165/102 96 Room Air 06/28/17 11:51 100 Room Air 06/28/17 11:47 97.7 54 31 198/98 100 Room Air Result Diagram: 06/29/17 0605 06/29/17 0605 Imaging Last Impressions Head Magnetic Resonance Angiography 06/29/171748 Signed Impressions: Service Date/Time: Thursday, June 29, 2017 07:54 - CONCLUSION: Normal examination. Paramjit Mata MD Brain MRI 06/29/17 0000 Signed Impressions: Service Date/Time: Thursday, June 29, 2017 07:54 - CONCLUSION: Normal examination. Paramjit Mtaa MD Carotid Artery Ultrasound 06/28/171748 Signed Impressions: Service Date/Time: June 18:33 - CONCLUSION: Negative examination for a hemodynamically significant carotid stenosis. Med Lang MD Head CT 06/28/17 1140 Signed Impressions: Service Date/Time: June 12:05 - CONCLUSION: Normal examination. Paramjit Mata MD Chest X-Ray 06/28/17 1140 Signed Impressions: Service Date/Time: June 11:42 - CONCLUSION: Normal examination for a patient of this age. Noel Vaca MD Objective Remarks GENERAL: Well-developed, obese in no distress SKIN: Warm and dry. HEAD: Atraumatic. Normocephalic. EYES: Pupils equal and round. No scleral icterus. No injection or drainage. Bruising right eyelid NECK: Trachea midline. No JVD. CARDIOVASCULAR: Regular rate and rhythm. RESPIRATORY: No accessory muscle use. Clear to auscultation. Breath sounds equal bilaterally. GASTROINTESTINAL: Abdomen soft, non-tender, nondistended. MUSCULOSKELETAL: Extremities without clubbing, cyanosis, or edema. No obvious deformities. NEUROLOGICAL: Awake and alert. No obvious cranial nerve deficits. Motor grossly within normal limits. Five out of 5 muscle strength in the arms and legs. Normal speech. Procedures None A/P Problem List: (1) Pain, eye, right ICD Code: H57.11 Status: Acute (2) Visual loss, right eye ICD Code: H54.61 Status: Acute (3) Diabetes mellitus, insulin dependent (IDDM), uncontrolled ICD Code: E10.65 Status: Chronic (4) Hypertension, uncontrolled ICD Code: I10 Status: Acute Assessment and Plan Patient is a 46-year-old male with primary medical history of CAD, HTN, IDDM, HLD, GERD who came into the hospital for evaluation of right eye pain, right eye visual change post ophthalmology procedure and syncope. Vasovagal syncope. He is hemodynamically and neurologically intact. Syncope workup unremarkable at this time with negative head CT, MRI and MRA of the brain follow-up EEG. Doubt cardiac event though history of coronary artery disease status post multiple stents. Patient denies chest pain. He also ruled out for VT with cardiac enzymes and EKG. Advised to follow-up with cardiology. Physical therapy eval and treat. Recommended home health care PT and visiting nurse Intraocular injection, secondary to diabetic retinopathy Right eye pain, right eye visual loss, changes Increase IOP - Possible drug reaction - Patient was given Avastin/ Kenalog. Avastin can cause elevated BP and Kenalog can increase IOP - Patient's symptoms don't appear to have stroke since numbness and movement loss was bilateral. Return of motor and sensory WNL on exam - CT scan showed normal examination - Chest x-ray showed normal examination for patient this age - EKG reviewed by me, sinus rhythm with no ST changes. Cardiac Enzymes negative - Dr. Kirkland patient's market consultant has been consulted and will see patient this morning in the clinic after discharge - Continue pain management with po and IV dilaudid, anxiety management - IV Ativan Hypertension, uncontrolled - Patient takes lisinopril 20 mg daily at home. - Avastin can cause increase in BP - Continue home meds - Hydralazine when necessary, Vasotec when necessary, clonidine when necessary - Improving episode of uncontrolled BP secondary to pain. Monitor BP trend IDDM, uncontrolled - Patient's blood sugar is in the 300 when he came to the hospital. States he took his Levemir 20 units. - Patient states he is usually on insulin pump but he alternates insulin pump and takes a break from it. During a month or 2 of insulin pump break, patient will take Levemir and Apidra on sliding scale to cover his blood glucose. - Restart home dose Levemir 20 units, insulin sliding scale - Monitor Accu-Cheks. Monitor for hypoglycemia - Check hemoglobin A1c Leukocytosis likely reactive. No signs of infection. We will monitor Pseudohyponatremia from hyperglycemia. Monitor DVT prop SCDs Discharge Planning Discharge patient to home with PT and visiting nurse Condition on discharge: Improved Diabetic and heart healthy diet Ad Avelina activity no driving Rx written: Sandytasusana Follow-up with primary care physician in one week, neurology and cardiology. Ophthalmology follow-up this morning Cole Burnham MD Jun 29, 2017 10:02
--- NOTE | 2017-06-29 11:32 | MG ---
cc: RATNA CHUA M.D. Lab No: Date: 06/29/2017 Age: 46 Sex: M Race: ___ REQUESTING PHYSICIAN Dr. Shah HISTORY An EEG was obtained on this 46-year-old patient being evaluated for possible seizures. The patient is described as awake during the study. The study showed a lot of artifact. There are some intermixed 8-10 per second rhythms posteriorly. There was beta activity diffusely. There are some theta rhythms bilaterally. Photic stimulation and hyperventilation disclosed no significant change. INTERPRETATION Probably normal wake and drowsy EEG for the patient's age. Specifically, no epileptiform features present. MD HARVEY Jiménez/RONALD /10:48 AM /11:24 AM
--- NOTE | 2017-06-29 12:34 | ECHRPT ---
Indication: Hypertensive heart disease without heart failure CONCLUSIONS Normal left ventricular size. Wall thickness is normal. The left ventricular systolic function is low normal with an estimated ejection fraction in the rang e of 50- 55%. Trace mitral valve regurgitation. Mitral annular calcification is present. The estimated pulmonary arterial pressure is 34 mmHg. BP: / HR: Rhythm: Sinus MEASUREMENTS (Male / Female) Normal Values Technical Quality:Good 2D ECHO LV Diastolic Diameter PLAX 4.1 cm 4.2 - 5.9 / 3.9 - 5.3 cm LV Systolic Diameter PLAX 3.1 cm IVS Diastolic Thickness 1.0 cm 0.6 - 1.0 / 0.6 - 0.9 cm LVPW Diastolic Thickness 0.5 cm 0.6 - 1.0 / 0.6 - 0.9 cm LV Relative Wall Thickness 0.4 RV Internal Dim ED PLAX 1.9 cm LA Systolic Diameter LX 3.5 cm 3.0 - 4.0 / 2.7 - 3.8 cm DOPPLER Mitral E Point Velocity 83.9 cm/s Mitral A Point Velocity 79.0 cm/s Mitral E to A Ratio 1.1 TR Peak Velocity 269.0 cm/s TR Peak Gradient 28.9 mmHg FINDINGS LEFT VENTRICLE Normal left ventricular size. Wall thickness is normal. The left ventricular systolic function is low normal with an estimated ejection fraction in the rang e of 50- 55%. RIGHT VENTRICLE Normal right ventricular size and systolic function. LEFT ATRIUM The left atrial size is normal. RIGHT ATRIUM The right atrial size is normal. ATRIAL SEPTUM Normal atrial septal thickness without atrial level shunting by limited color doppler interrogation. AORTA The aortic root and proximal ascending aorta are normal in size on limited imaging. MITRAL VALVE Trace mitral valve regurgitation. Mitral annular calcification is present. AORTIC VALVE Trileaflet aortic valve. No aortic valve stenosis or regurgitation. TRICUSPID VALVE The estimated pulmonary arterial pressure is 34 mmHg. PULMONARY VALVE The pulmonary valve is not well visualized. VESSELS The inferior vena cava is normal in size. PERICARDIUM No pericardial effusion. Sara Salazar MD, FACC (Electronically Signed) Final Date:29 June 2017 12:33
--- NOTE | 2017-06-29 16:24 | EKG ---
Date Performed: 06/28/2017 Time Performed: 11:41:06 PTAGE: 46 years EKG: Sinus rhythm WITH SINUS ARRHYTHMIA Compared to previous tracing, sinus arrhythmia is new, otherwise no significan t change NORMAL ECG PREVIOUS TRACING : 08/03/2012 02.42 DOCTOR: Emanuel Villa Interpretating Date/Time 06/29/2017 16:23:42
[2017-06-29 16:35] LABS: HEMOGLOBIN A1a 1.1 %; HEMOGLOBIN Ao 80.2 %; HEMOGLOBIN LA1C 3.3 %; HEMOGLOBIN P3 4.8 %
[2017-06-29] MEDS ORDERED: INSULIN DETEMIR 100 UNITS/ML VIAL SQ SCH (18:00)
== END 2017-06-29 12:26 | disposition home or self-care (01) ==
LOC: NEPE 11:35 → NEDA 14:40 → NEPHCDU 17:10
PROVIDERS: ADMIT Internal Medicine; ATTEND Internal Medicine
DX: H57.11 Ocular pain, right eye (principal); H54.61 Unqualified visual loss, right eye, normal vision left eye; S00.11XA Contusion of right eyelid and periocular area, initial encounter; I10 Essential (primary) hypertension; E11.65 Type 2 diabetes mellitus with hyperglycemia; E11.319 Type 2 diabetes mellitus with unspecified diabetic retinopathy without macular edema; D72.829 Elevated white blood cell count, unspecified; R42 Dizziness and giddiness; R55 Syncope and collapse; R61 Generalized hyperhidrosis; R11.2 Nausea with vomiting, unspecified; R07.9 Chest pain, unspecified; R06.02 Shortness of breath; R40.0 Somnolence; R41.82 Altered mental status, unspecified; I25.10 Atherosclerotic heart disease of native coronary artery without angina pectoris; E78.5 Hyperlipidemia, unspecified; F41.9 Anxiety disorder, unspecified; E78.00 Pure hypercholesterolemia, unspecified; K21.9 Gastro-esophageal reflux disease without esophagitis; R20.0 Anesthesia of skin; I49.8 Other specified cardiac arrhythmias; F17.210 Nicotine dependence, cigarettes, uncomplicated; Z95.5 Presence of coronary angioplasty implant and graft; Z79.82 Long term (current) use of aspirin; Z79.4 Long term (current) use of insulin; Z79.899 Other long term (current) drug therapy; Z96.41 Presence of insulin pump (external) (internal); X58.XXXA Exposure to other specified factors, initial encounter
CPT/HCPCS: 70450; 70544; 70551; 71010; 80048; 80307; 82550; 82948; 83036; 83735; 84484; 85025; 85610; 85730; 93005; 93306; 93880; 95819; 96372; 96374; 96375; 97162; 99291; G0378; G8987; G8988; J1170; J1815; J2060; J2270; J2405